=== PATIENT | male | born 1955 | race African-American/Black ===

== ENCOUNTER 2017-08-11 22:42 | Inpatient (IN) | payer SELFPAY ==
--- NOTE | 2017-08-11 23:11 | PDOC ---
History of Present Illness - General Stated Complaint: SLURRED SPEECH Time Seen by Provider: 08/11/17 23:04 History Source: Family - History of Present Illness Initial Comments: 08/11/17 23:10 Patient is a 61 y.o. male who presents with slurred speech and R sided facial droop, RUE weakness of 6 days. Patient brought to ED by brother who noticed the slurred speech when visiting him tonight around 10 p.m. Past History - Past Medical History Allergies/Adverse Reactions: Allergies Allergy/AdvReac Type Severity Reaction Status Date / Time No Known Allergies Allergy Verified 08/11/17 23:20 Home Medications: Ambulatory Orders Unobtainable [Unobtainable] 08/11/17 - Suicide/Smoking/Psychosocial Hx Smoking History: Unknown if ever smoked Review of Systems - Review of Systems Constitutional: No: Chills, Fever HEENTM: No: Recent change in vision Respiratory: No: Shortness of Breath Cardiac (ROS): No: Chest Pain Neurological: Yes: See HPI. No: Numbness, Tingling, Weakness, Unsteady Gait, Ataxia, Dizziness *Physical Exam - Vital Signs Last Vital Signs Temp Pulse Resp BP Pulse Ox 98.7 F 85 20 184/120 100 08/11/17 23:02 08/11/17 23:02 08/11/17 23:02 08/11/17 23:02 08/11/17 23:02 - Physical Exam Comments: 08/12/17 00:22 GENERAL: Awake, alert, and fully oriented, in no acute distress HEAD: No signs of trauma EYES: PERRLA, EOMI, sclera anicteric, conjunctiva clear ENT: Auricles normal inspection, hearing grossly normal, nares patent, oropharynx clear without exudates. Moist mucosa NECK: Normal ROM, supple, no lymphadenopathy, JVD, or masses LUNGS: Breath sounds equal, clear to auscultation bilaterally. No wheezes, and no crackles HEART: Regular rate and rhythm, normal S1 and S2, no murmurs, rubs or gallops ABDOMEN: Soft, nontender, normoactive bowel sounds. No guarding, no rebound. No masses EXTREMITIES: Normal range of motion, no edema. No clubbing or cyanosis. No cords , erythema, or tenderness BACK: No midline spinal tenderness in cervical/ thoracic/lumbar region NEUROLOGICAL: slurred speech, cranial nerves intact, R sided protonator drift, normal sensation to light touch in all 4 extremities, normal cerebellar exam, normal gait, normal reflexes and tone SKIN: Warm, Dry, normal turgor, no rashes or lesions noted. ED Treatment Course - LABORATORY CBC & Chemistry Diagram: 08/11/17 23:15 08/11/17 23:15 Medical Decision Making - Medical Decision Making 08/11/17 23:21 Patient is a 61 y.o. male with a PMH of HTN who presents with slurred speech and R sided facial droop of unknown onset. At presentation patient hypertensive (SBP 180's). Stroke protocol initiated. Patient not candidate for tPA at this time given > 4.5 hours onset of symptoms. 08/11/17 23:45 CT head negative for acute ischemic process or hemmorhagic stroke. Case d/w neurology and patient's PCP, Dr. Ly. Patient to be admitted to inpatient medicine service for MRI and MRA. Patient resting comfortably, SBP 150's. Cholesterol 264 --> Lipitor. Patient given ASA. Will continue to monitor while in ED. *DC/Admit/Observation/Transfer Diagnosis at time of Disposition: Cerebrovascular accident (CVA) - Referrals - Patient Instructions - Post Discharge Activity
--- NOTE | 2017-08-11 23:12 | PDOC ---
NIH Stroke Scale - Last Known Well Date/Time & Onset Date Last Known Well: 08/05/17 Time Last Known Well: 23:00 - Initial Evaluation Level of consciousness: Alert Ask patient the month and their age: Answers both correctly Ask patient to open & close eyes; make fist and let go: Obeys both correctly Best gaze (horizontal eye movement): Normal Visual field testing: No visual field loss Facial paresis (Show teeth/raise eyebrows/close eyes tight): Minor paralysis ( flattened nasolabial fold, asymmetry on smiling) (R sided facial droop; tongue deviation to R) Motor Function: Left Arm: Normal Motor Function: Right Arm: Normal (extends arm 90 (or 45) degrees for 10 seconds without drift Motor Function: Left Leg: Normal (extends leg 30 degrees for 5 seconds without drift) Motor Function: Right Leg: Normal (extends leg 30 degrees for 5 seconds without drift) Limb Ataxia: No ataxia Sensory(Use pinprick test arms,legs,trunk,face/side to side): Normal Best language (Describe picture, name items, read sentences): No Aphasia Dysarthria (read several words): Mild to moderate slurring of words Extinction and Inattention: No abnormality - Total Score NIH Stroke Scale Score: 2
[2017-08-11 23:28] LABS: BASO % 0.8 % (0-2.0); EOS % 4.2 % (0-4.5); HEMATOCRIT 44.7 % (35.4-49); HEMOGLOBIN 15.1 GM/dL (11.7-16.9); LYMPH % 36.3 % (8-40); MCH 33.1 pg (25.7-33.7); MCHC 33.8 g/dl (32.0-35.9); MEAN CELL VOLUME 97.9 fl (80-96); MEAN PLT VOLUME 7.7 fl (7.5-11.1); MONO % 9.3 % (3.8-10.2); NEUT % 49.4 % (42.8-82.8); PLATELET COUNT 218 K/MM3 (134-434); RBC 4.56 M/mm3 (4.00-5.60); WHITE BLOOD COUNT 7.1 K/mm3 (4.0-10.0)
--- NOTE | 2017-08-11 23:28 | PDOC ---
Attending Attestation - Resident Resident Name: Mei García - ED Attending Attestation I have performed the following: I have examined & evaluated the patient, The case was reviewed & discussed with the resident, I agree w/resident's findings & plan, Exceptions are as noted - HPI HPI: 08/12/17 01:50 The patient is a 61 year old male, accompanied by brother, with no significant past medical history who presents to the ED with slurred speech for 2 days. As per brother, the patient notes he feels generally weak for the past 2 days with slowed speech. Brother states the patient was talking slowly, forgetting words and slurring over his speech earlier today. Patient also notes his tongue feels heavy. Denies headache. HPI is limited secondary to patients clinical condition. - Physicial Exam PE: 08/12/17 01:50 GENERAL: Awake, alert, and fully oriented HEAD: No signs of trauma EYES: PERRLA, EOMI, sclera anicteric, conjunctiva clear ENT: Auricles normal inspection, hearing grossly normal, nares patent, oropharynx clear without exudates. Moist mucosa NECK: Normal ROM, supple, no lymphadenopathy, JVD, or masses LUNGS: Breath sounds equal, clear to auscultation bilaterally. No wheezes, and no crackles HEART: Regular rate and rhythm, normal S1 and S2, no murmurs, rubs or gallops ABDOMEN: Soft, nontender, normoactive bowel sounds. No guarding, no rebound. No masses EXTREMITIES: Normal range of motion, no edema. No clubbing or cyanosis. No cords , erythema, or tenderness BACK: No midline spinal tenderness in cervical/thoracic/lumbar region NEUROLOGICAL: + Right sided facial droop, right pronator drift, slurred speech, at time answers question inappropriately. Cerebeller exam wnl. Gait exam deferred. Normal sensation to light touch x4. SKIN: Warm, Dry, normal turgor, no rashes or lesions noted. - Medical Decision Making 08/11/17 23:26 61-year-old male with no significant past Department with 2 days of slurred speech, right facial weakness, and right upper extremity weakness. Vitals remarkable for hypertension in the emergency department. Exam with slurred speech, right-sided facial droop, and right-sided pronator drift. Patient likely had a CVA 2 days ago, he is out of the window for TPA treatment. No fevers, chills, rash to suggest meningitis. We'll obtain CT head and stroke labs , if CT head is negative for hemorrhagic stroke, we'll obtain MRI, consult neurology and admit patient. 08/12/17 00:[address] Ly Case discussed in detail with admitting physician including history, physical exam and ancillary studies. Admitting physician has assumed care for the patient, will follow all pending diagnostics and will complete the evaluation and treatment.
[2017-08-11 23:31] VITALS: BMI 28.8
[2017-08-11] MEDS: SODIUM CHLORIDE 1,000 ML IV SCH (23:31)
[2017-08-11 23:51] LABS: ALBUMIN 4.4 g/dl (3.4-5.0); ANION GAP 9 (8-16); BLOOD UREA NITROGEN 14 mg/dL (7-18); CALCIUM 9.3 mg/dL (8.5-10.1); CHLORIDE 105 mmol/L (98-107); CHOLESTEROL 267 mg/dL (50-200); CO2 28 mmol/L (21-32); CREATININE 1.2 mg/dL (0.7-1.3); GLUCOSE,RANDOM 98 mg/dL (74-106); INR 0.94 (0.82-1.09); POTASSIUM 3.9 mmol/L (3.5-5.1); PROTHROMBIN TIME (PATIENT) 10.6 SEC (9.98-11.88); SGOT/AST 22 U/L (15-37); SGPT/ALT 45 U/L (12-78); SODIUM 142 mmol/L (136-145); TRIGLYCERIDES 154 mg/dL (35-160)
[2017-08-11 23:55] LABS: ALK PHOS 70 U/L (45-117); BILIRUBIN,TOTAL 0.3 mg/dL (0.2-1.0)
[2017-08-12] MEDS ORDERED: ATORVASTATIN CA 80 MG TABLET (FP) PO ONE (00:03)
[2017-08-12] MEDS ORDERED: ASPIRIN 325 MG TABLET PO ONE (00:03)
[2017-08-12] MEDS ORDERED: ATORVASTATIN CA 80 MG TABLET (FP) ONE (00:17)
[2017-08-12] MEDS ORDERED: ASPIRIN 325 MG ENTERIC COATED TABLET (FP) ONE (00:17)
[2017-08-12 00:25] LABS: HDL CHOLESTEROL 68 mg/dL (40-60); LDL CHOLESTEROL (ONLY SJRH) 164 mg/dL (5-100)
[2017-08-12 07:19] LABS: URINE APPEARANCE CLEAR; URINE BILIRUBIN NEGATIVE (NEGATIVE); URINE BLOOD 2+ (NEGATIVE); URINE COLOR STRAW; URINE GLUCOSE (UA) NEGATIVE (NEGATIVE); URINE KETONE NEGATIVE (NEGATIVE); URINE NITRITE NEGATIVE (NEGATIVE); URINE PROTEIN NEGATIVE (NEGATIVE); URINE UROBILINOGEN NEGATIVE mg/dL (0.2-1.0)
[2017-08-12 07:39] LABS: URINE LEUK ESTERASE 1+ (NEGATIVE)
[2017-08-12 07:40] LABS: URINE MUCUS RARE
--- NOTE | 2017-08-12 12:24 | EKG ---
Test Reason : Blood Pressure : / mmHG Vent. Rate : 061 BPM Atrial Rate : 061 BPM P-R Int : 176 ms QRS Dur : 088 ms QT Int : 406 ms P-R-T Axes : 027 021 038 degrees QTc Int : 408 ms NORMAL SINUS RHYTHM MINIMAL VOLTAGE CRITERIA FOR LVH, MAY BE NORMAL VARIANT POOR R WAVE PROGRESSION ABNORMAL ECG NO PREVIOUS ECGS AVAILABLE NOTE ERROR IN LEAD V4, RECOMMEND REPEAT Confirmed by KAYLEE BOONE, STEFF ([id number]) on 08/12/2017 12:24:38 PM Referred By: Confirmed By:STEFF PAGE MD
--- NOTE | 2017-08-12 14:47 | HP ---
DATE OF ADMISSION: 08/12/2017 A 61-year-old male, known to have hypertension, hyperlipidemia, who was brought here by family yesterday evening with complaints of disorientation and minimal weakness on the right side. 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 No alcohol abuse. No drug abuse. He takes Percocet for his back pain. PHYSICAL EXAMINATION TODAY: Vital Signs: BP 130/95, pulse 72, respiration 20, temperature 98. General: Patient is awake and alert and oriented. HEENT: Unremarkable. Neck: Supple, no JVD. Lungs: Clear. Heart: S1, S2 normal. No S3, S4. Abdomen: Soft. Legs: No edema. Neurological: Minimal weakness, right upper extremity. Right plantar is not reacting, left plantar is upgoing. LABORATORY REPORTS: WBC 7, hemoglobin 15, platelets 218. Chemistry: Sodium 142, potassium 3.9, chloride 105, CO2 28, BUN 14, creatinine 1.2, cholesterol 267, and LDL 164, HDL 68. Troponin is negative. EKG to be evaluated. MRI of the brain showed left periventricular infarct. IMPRESSION: Cerebrovascular accident with left hemiparesis, hypertension, hyperlipidemia. PLAN: Admit to stroke floor. Neurology consult, Dr. Ridley. Other medications ordered. NAHUN VALLEJO M.D. [id number]
--- NOTE | 2017-08-12 17:08 | CONSULT ---
Consult - text type - Consultation Consultation Note: NEUROLOGY CONSULTATION is greatly appreciated: Events reviewed and discussed with ED staff and Dr. Hugo Ly: This 61 yo RH (?) man with h/o HTN and chol, on atorvastatin has had 6 days of R sided weakness and "slurred speech." CT of head (reviewed): shows deep lucencies in the Left MCA teritory. MRI (reviewed): shows multiple, scattered, infarcts in the Left frontotemporal region. MR Angio (reviewed) shows a distal left ICA occlusion with no flow in the Left middle and anterior Cerebral arteries. EXAM: No bruits. Cor Reg. NEURO: Awake, alert. Fluent (receptive) aphasia with word substitutions. Follows rare commands. Mild Right facial droop. Full chappell to threat. Full EOM's. Gag normal Mild right drift. Normal grasps and leg strength. Normal reflexes. Toes downgoing. IMP: Moderate left cerebral dysfunction with receptive aphasia. Etiology is distal Left ICA occlusion. MRI pattern of small, scattered, deep infarcts, supports a more gradual process with the time to establish collateral circulation. With question of onset as long as 6 days ago, Patient is not a candidate for endovascular intervention. SUGGEST: Admit to a monitored bed. Cardiology evaluation, Echo, etc. Speech therapy eval. Maintain normotensive. Antiplatelet Rx unless a source of cardiogenic embolism is suspected. Thank you very much, Italo Ridley MD
[2017-08-12] MEDS: HEPARIN NA (PORCINE) 5,000 UNITS/ML 1ML VIAL SQ SCH (21:44)
[2017-08-12] MEDS: ATORVASTATIN CA 80 MG TABLET (FP) PO SCH (21:44)
[2017-08-12] MEDS: SODIUM CHLORIDE 1,000 ML IV SCH (23:32)
[2017-08-12] MEDS: amLODIPine BESYLATE 5 MG TABLET (FP) PO SCH (23:32)
[2017-08-13] MEDS: HEPARIN NA (PORCINE) 5,000 UNITS/ML 1ML VIAL SQ SCH ×2 (09:33→21:30)
[2017-08-13] MEDS: amLODIPine BESYLATE 5 MG TABLET (FP) PO SCH (09:33)
--- NOTE | 2017-08-13 09:45 | PN ---
Progress Note, Physician Chief Complaint: Feels better History of Present Illness: admitted with Lt CVA with Rt hemiparesis and dysphasia - Current Medication List Current Medications: Active Medications Amlodipine Besylate (Norvasc -) 5 mg PO DAILY [facility] Last Admin: 08/12/17 23:32 Dose: 5 mg Atorvastatin Calcium (Lipitor -) 80 mg PO HS [facility] Last Admin: 08/12/17 21:44 Dose: 80 mg Heparin Sodium (Porcine) (Heparin -) 5,000 unit SQ BID [facility] Last Admin: 08/12/17 21:44 Dose: 5,000 unit Sodium Chloride (Normal Saline -) 1,000 mls @ 42 mls/hr IV ASDIR [facility] Last Admin: 08/12/17 23:32 Dose: 42 mls/hr - Objective Vital Signs: Vital Signs Temperature 98.2 F 08/13/17 08:05 Pulse Rate 60 08/13/17 08:05 Respiratory Rate 14 08/13/17 08:05 Blood Pressure 148/94 08/13/17 08:05 O2 Sat by Pulse Oximetry (%) 99 08/12/17 21:00 Constitutional: Yes: Calm Eyes: Yes: WNL HENT: Yes: WNL Neck: Yes: WNL Cardiovascular: Yes: WNL Respiratory: Yes: WNL Gastrointestinal: Yes: WNL ...Rectal Exam: Yes: WNL Genitourinary: Yes: WNL Breast(s): Yes: WNL Extremities: Yes: WNL Edema: No Peripheral Pulses WNL: Yes Neurological: Yes: Alert, Babinski negative Psychiatric: Yes: WNL Labs: CBC, BMP 08/11/17 23:15 08/11/17 23:15 INR, PTT INR 0.94 (0.82-1.09) 08/11/17 23:15 - ....Imaging Chest X-ray: Pending Assessment/Plan Cardiology consult Swallowing evaluation PT evaluation
--- NOTE | 2017-08-13 11:54 | CONS ---
DATE OF CONSULTATION: 08/13/2017 REQUESTING PHYSICIAN: Kvng Ly MD CHIEF COMPLAINT: 1. Slurred speech. 2. Difficulty in formulating words. HISTORY: The patient is a 61-year-old gentleman who hails from [facility] who has a history of hypertension and hypercholesterolemia. According to Dr. Ly, he has poor follow up. He has difficulty formulating words but is able to answer in yes and no. On questioning, he has had these symptoms for 6 days prior to admission. There is no history of loss of consciousness or seizures. There is no history of palpitations, lightheadedness, or dizziness. No history of chest pain or discomfort. No history of dyspnea either at rest or with exertion. Denies having diabetes mellitus. No history of heart murmur or rheumatic fever. PAST MEDICAL HISTORY: As mentioned in the history of present illness. PAST SURGICAL HISTORY: Denies having any surgeries. SOCIAL HISTORY: He is employed, . Has a son and a daughter. Smokes less than a pack of cigarettes per week. An occasional drinker. No known history of drug use. FAMILY HISTORY: Both parents are and in their 70s. He does not know the cause of their demise. Has a brother and possibly a sister but was unable to communicate if they are healthy. ALLERGIES: None reported. CURRENT MEDICATIONS: 1. Heparin 5000 units subcutaneous b.i.d. 2. Amlodipine 5 mg p.o. daily. 3. Atorvastatin 80 mg p.o. daily. REVIEW OF SYSTEMS: Constitutional: No history of chills, fever, or night sweats reported. HEENT: No history of headaches, diplopia, blurred vision. No history of epistaxis, hoarseness, tinnitus, or deafness reported. Cardiovascular: No history of chest pain or discomfort. No history of palpitations. Respiratory: Denies having a cough, expectoration, or hemoptysis. Gastrointestinal: No history of nausea, vomiting, melena, or hematemesis. No history of abdominal pain or discomfort. Neurologic: See history of present illness. No history of myalgias or arthralgias. Endocrine: No history of polyuria or polydipsia. Denies having intolerance to cold or warm weather. Hematologic: No history of anemia, ecchymosis, or bleeding. PHYSICAL EXAMINATION: General: A 61-year-old gentleman who is in no acute distress. No pallor, cyanosis, clubbing, or jaundice. Vital Signs: Blood pressure 148/94 mmHg, pulse 60 beats per minute and regular. Patient is afebrile 98.2 Fahrenheit. Respirations are 14 per minute. Neck: Supple. No jugular venous distention. Carotids are 2+. Upstrokes are normal. No bruits are heard. No thyromegaly is present. Heart: PMI is in the 5th intercostal space. No heaves or thrills. S1, S2 are normal. No murmur, gallops, or rubs are heard. Lungs: Clear on auscultation. Chest: Normal AP diameter. Expansion is symmetrical. Abdomen: Soft, protuberant, and nontender. No hepatosplenomegaly or palpable masses are felt. Bowel sounds are hard. No bruits are present. Extremities: No calf tenderness or dependent edema. Pulses are equal. Neurologic: There is weakness of the right hand. There is dysarthria and slurring of speech. He is able to ambulate without difficulty. LABORATORY DATA: X-ray chest: There is weak inspiratory effort with resultant large heart, unfolding aorta, tracheal deviation to the right, and clear lung chappell. The angles are soft, and the soft tissues are intact. There is slight elevation of the left hemidiaphragm. Clinical correlation is recommended. CT scan of the head: Minimal periventricular white matter lucency left more than right. Please refer to MRI of the brain dated August 12, 2017. Impression: 1. 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 Flow is present in the left A2 segment through an anterior communicating artery. Questionable moderate narrowing of the mid right M1 segment. 2. The MRI had revealed there is mild volume loss and ventricular dilatation. There are multiple T2 hyperintense foci in the left periventricular white matter at the level of the aung radiating with the largest foci measuring approximately 1.4 cm and multiple foci in the left posterior temporal and front as well as in the left occipital and parietal white matter with restricted diffusion. 3. Echocardiogram was not available. CBC: August 11, 2017 WBC count 7100, hemoglobin 15.1 g, platelet count 218,000. Chemistry: Sodium 142, potassium 3.9, chloride 105, CO2 is 28, BUN 14, creatinine 1.2 mg/dL, random glucose 98 mg/dL, cholesterol 267, triglycerides 154, LDL cholesterol 164, HDL 68 mg/dL. INR 0.94. Urinalysis revealed 2+ blood, 1+ leukocyte esterase. There were 8 WBCs and 3 RBCs, rare urine mucus. IMPRESSION: 1. Cerebrovascular disease with dysarthria, expressive aphasia, and weakness of the right hand. Etiology: A. Cryptogenic stroke needs to be excluded especially in view of MRI findings. B. Related to atherosclerotic acute internal carotid artery occlusion 2. Hypertension, hypertensive cardiovascular disease. 3. Hypercholesterolemia. 4. Tobacco abuse. 5. Microscopic hematuria with possible urinary tract infection. 6. Poor compliance. RECOMMENDATIONS: 1. ECG. 2. Echocardiogram. 3. Holter monitor. 4. Anti-lipid therapy. 5. Risk modification. 6. Further suggestions will depend on the results of the above-mentioned test. Thank you for your referral. Yours Sincerely, AYLEEN PEREZ M.D. [id number]
--- NOTE | 2017-08-13 12:13 | CONSULT ---
Admitting History and Physical - Primary Care Physician PCP: Kvng Ly - Admission History of Present Illness: Patient is a 61 y.o. male who presented with slurred speech and R sided facial droop, RUE weakness of 6 days. Per NEUROLOGY 08/12/17: Awake, alert. Fluent (receptive) aphasia with word substitutions. Follows rare commands. Mild Right facial droop. Full chappell to threat. Full EOM's. Gag normal Mild right drift. Normal grasps and leg strength. Normal reflexes. Toes downgoing. IMP: Moderate left cerebral dysfunction with receptive aphasia. Etiology is distal Left ICA occlusion. MRI pattern of small, scattered, deep infarcts, supports a more gradual process with the time to establish collateral circulation. With question of onset as long as 6 days ago, Patient is not a candidate for endovascular intervention. History Source: Patient, Medical Record Limitations to Obtaining History: Clinical Condition (Aphasia) - Smoking History Smoking history: Unknown if ever smoked History - Admission Reason For Visit: SLURRED SPEECH - Diagnostics CT Scan: Report Reviewed ( deep lucencies in the Left MCA teritory.) MRI: Report Reviewed ( multiple, scattered, infarcts in the Left frontotemporal region.) Other: Report Reviewed (distal left ICA occlusion with no flow in the Left middle and anterior Cerebral arteries.) - General Mental Status: Alert and Oriented, Awake and Alert Attention: Intact Ability to Follow Directions: Poor (Follows single 1 stage commands 60% of the time. Unable to follow 2 stage simple commands) Head/Neck Control: Good - Hearing Hearing: Functional Speech Evaluation - Communication Primary Language: UNKNOWN Communication: Yes: Simple Responses, Aphasia Oral Expression Ability: Yes: Moderate Impairment - Speech Production Able to Make Needs Known: Yes: Mildly Impaired Intelligibility: Yes: WNL - Speech Characteristics Voice Loudness: Mildly Soft/Quiet Voice Pitch: Yes: Normal Voice Phonatory-based Quality: Yes: Normal Nasal Resonance: Normal Articulation: Yes: Precise - Language/Auditory Comprehension Observation: Able to respond to yes/no queries: Yes (simple), Benefits from Slow Speech: Yes, Benefits from Repetiton: Yes - Language/Verbal Expression Aphasia: Yes: Anomia, Paraphrasic Errors Able to Respond to Simple Queries: Yes: Mildly Impaired, Moderately Impaired Able to Communicate Wants and Needs: Yes: Mildly Impaired Functional Communication Status: Yes: Mildly Impaired, Moderately Impaired Aware of Errors: No Attempts to Correct Errors: No - Swallow Evaluation/Bedside Assessment Current Nutritional Intake: Regular, Thin Liquids Oral Secretions: Yes: WFL Dentition: Yes: Adequate Facial Symmetry at Rest: Facial Droop Right Facial Symmetry on Retraction: Symmetrical Facial Movement: Controlled Against Resistance Opening: Normal Against Resistance Closing: Normal Pucker Lips: Normal Smile: Normal, Droops Right (slight) Lingual Movement: Symmetric Lingual Speed of Movement: Normal Lingual Movement Strgth Against Opposition: Normal Lingual Movement Characteristics: Normal Velopharyngeal Movement: Normal Laryngeal Elevation: WFL Laryngeal Movement: Able to Palpate Rate of Intake: WFL Bolus Size: WFL Labial Seal: WFL Chewing: WFL Oral Prep Time: WFL A-P Transit: WFL Pocketing: None Timing of Swallow: WFL Coughing/Throat Clear: No Change in Voice: No Recommendations - Speech Evaluation, Impression/Plan Impression: Pt presents with comprehension/formulation deficits c/w Aphasia.No dysarthria. Oriented. Pt is able to follows single 1 stage commands 60% of the time. Unable to follow 2 stage simple commands. He can produce social speech and simple sentences. There is anomia, perseveration and paraphasic errors during confrontation naming and propositional speech tasks. Error awareness is poor, with denial of communication deficits and no attempt to correct errors. Language function is improving, as compared to yesterday's Neurology consult. Recommended Therapies: Language - Disposition Discharge to: To be Determined - Dysphagia Impressions/Plan Swallowing Skills: WF Dysphagia Impressions: No Impairment *Silent aspiration: cannot be R/O at bedside Recommendations: Other (Continued Aphasia therapy upon d/c.) - Recommendations Diet Consistency: Regular Medication Administration: Whole with water Liquids: Thin Liquids
--- NOTE | 2017-08-13 12:35 | EKG ---
Test Reason : Blood Pressure : / mmHG Vent. Rate : 066 BPM Atrial Rate : 066 BPM P-R Int : 184 ms QRS Dur : 088 ms QT Int : 406 ms P-R-T Axes : 045 027 052 degrees QTc Int : 425 ms NORMAL SINUS RHYTHM WITH SINUS ARRHYTHMIA NORMAL ECG WHEN COMPARED WITH ECG OF 11-AUG-2017 23:17, NO SIGNIFICANT CHANGE WAS FOUND Confirmed by DAWIT BELTRE MD ([id number]) on 08/13/2017 12:35:07 PM Referred By: Confirmed By:DAWIT BELTRE MD
[2017-08-13] MEDS: ATORVASTATIN CA 80 MG TABLET (FP) PO SCH (21:30)
--- NOTE | 2017-08-14 09:28 | PN ---
Progress Note, Physician Chief Complaint: Feels better History of Present Illness: Dr Muhammad cardiology consult and Trey swallowing evaluation appreciated - Current Medication List Current Medications: Active Medications Amlodipine Besylate (Norvasc -) 5 mg PO DAILY [facility] Last Admin: 08/13/17 09:33 Dose: 5 mg Atorvastatin Calcium (Lipitor -) 80 mg PO HS [facility] Last Admin: 08/13/17 21:30 Dose: 80 mg Heparin Sodium (Porcine) (Heparin -) 5,000 unit SQ BID [facility] Last Admin: 08/13/17 21:30 Dose: 5,000 unit - Objective Vital Signs: Vital Signs Temperature 98.3 F 08/14/17 06:00 Pulse Rate 64 08/14/17 06:00 Respiratory Rate 20 08/14/17 06:00 Blood Pressure 133/78 08/14/17 06:00 O2 Sat by Pulse Oximetry (%) 98 08/13/17 21:00 Constitutional: Yes: No Distress Eyes: Yes: WNL HENT: Yes: WNL Neck: Yes: WNL Cardiovascular: Yes: WNL Respiratory: Yes: WNL Gastrointestinal: Yes: WNL ...Rectal Exam: Yes: Deferred Musculoskeletal: Yes: WNL Extremities: Yes: WNL Edema: No Peripheral Pulses WNL: Yes Neurological: Yes: WNL ...Motor Strength: WNL Labs: CBC, BMP 08/11/17 23:15 08/11/17 23:15 INR, PTT INR 0.94 (0.82-1.09) 08/11/17 23:15 - ....Imaging EKG: Report Reviewed Assessment/Plan Echocardiogram
[2017-08-14] MEDS: HEPARIN NA (PORCINE) 5,000 UNITS/ML 1ML VIAL SQ SCH ×2 (10:32→21:40)
[2017-08-14] MEDS: amLODIPine BESYLATE 5 MG TABLET (FP) PO SCH (10:32)
--- NOTE | 2017-08-14 10:58 | PN ---
Progress Note (short form) - Note Progress Note: Patient has improved, minimal expressive aphasia and right hand weakness. ambulating. patient was not taking his medications. No palpitations reported. work up in progress. BP is well controlled. Active Medications Generic Name Dose Route Start Last Admin Trade Name Gerry PRN Reason Stop Dose Admin Amlodipine Besylate 5 mg 08/12/17 23:15 08/14/17 10:32 Norvasc - PO 5 mg DAILY BOB Administration Atorvastatin Calcium 80 mg 08/12/17 22:00 08/13/17 21:30 Lipitor - PO 80 mg HS BOB Administration Heparin Sodium (Porcine) 5,000 unit 08/12/17 22:00 08/14/17 10:32 Heparin - SQ 5,000 unit BID BOB Administration 61 year old male in no acute distress, no pallor , cyanosis, clubbing or jaundice. Last Vital Signs Temp Pulse Resp BP Pulse Ox 98.3 F 64 20 133/78 98 08/14/17 06:00 08/14/17 06:00 08/14/17 06:00 08/14/17 06:00 08/13/17 21:00 NECK: Supple, no JVD, carotids are 2+ no bruits heard. HEART: PMI in the 5th ICS, no heaves or thrills, S1 & S2 are normal, no murmur or gallops heard. LUNGS: Clear on auscultation. ABDOMEN: Soft, nontender, no calf tenderness or dependent edema. CBC, BMP 08/11/17 23:15 08/11/17 23:15 IMPRESSION: 1. 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 2. Hypertension, poorly controlled. 3. Hypercholesterolemia. 4. Poor compliance. RECOMMENDATIONS: 1. Vascular opinion regarding carotid disease. 2. current therapy. 3. Add ASA 81 mg.
--- NOTE | 2017-08-14 11:21 | PN ---
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 Pt is now able to name 50% of objects with poor awareness of paraphasic errors and perseverative responses. He can now follow simple 2 stage commands 50% of time, with slow rate of presentation and repetition to facilitate accuracy. Receptive/expressive Aphasia will continue to improve spontaneously. Unfortunately, pt does not have insurance for Speech Therapy. I am referring pt to [facility] for Free Group Aphasia therapy,Every Sunday between 2-3. Contact Damoisésa/phone number is [phone]
[2017-08-14] MEDS: ASPIRIN COATED 81 MG TABLET.EC PO SCH (11:29)
--- NOTE | 2017-08-14 17:29 | HOL ---
Hook-up date: 2017-08-13 13:48:00 Duration: 24:00:00 Test Indications: Medications: 55227 QRS complexes 8 Ventricular ectopics which represent <1 % of total QRS comp. 4 Supraventricular ectopics which represent <1 % of total QRS comp. * Paced QRS complexs which represent % of total QRS comp. * % of Time Classified as Noise VENTRICULAR ECTOPY 8 Isolated 0 Bigeminal Cycles 0 Couplets 0 Runs 0 Beats in Runs * Beats LONGEST at * BPM at :: -- * Beats FASTEST at * BPM at :: -- SUPRAVENTRICULAR ECTOPY 3 Isolated 0 Couplets 0 Runs 0 Beats in Runs * Beats LONGEST at * BPM at :: -- * Beats FASTEST at * BPM at :: -- HEART RATES 46 MIN at 06:10:28 2017-08-14 65 AVG 106 MAX at 23:49:26 2017-08-13 LONGEST RR 1.528 secs at 15:24:33 2017-08-13 SCANNED BY [facility] [place] ON 08/14/17 Normal sinus rhythm Minimum HR 46 BPM and Maximal HR 106 BPM with an Average of 65 BPM. no prolonged pauses. Rare VPC Confirmed by Rodriguez Guzman ([id number]) on 08/14/2017 5:28:38 PM Referred By: SHEIK GALEAS DR Overread By: Rodriguez Guzman
[2017-08-14] MEDS: ATORVASTATIN CA 80 MG TABLET (FP) PO SCH (21:40)
[2017-08-15 06:18] VITALS: TEMP 98.3
--- NOTE | 2017-08-15 09:43 | DS ---
Physical Examination Vital Signs: Vital Signs Temperature 98.3 F 08/15/17 06:00 Pulse Rate 52 L 08/15/17 06:00 Respiratory Rate 20 08/15/17 06:00 Blood Pressure 138/75 08/15/17 06:00 O2 Sat by Pulse Oximetry (%) 99 08/14/17 21:00 Findings/Remarks: Lt CVA with Rt hemiparesis Constitutional: Yes: Well Nourished Eyes: Yes: WNL HENT: Yes: WNL Neck: Yes: WNL Cardiovascular: Yes: WNL Respiratory: Yes: WNL Gastrointestinal: Yes: WNL ...Rectal Exam: Yes: Deferred Renal/: Yes: WNL Musculoskeletal: Yes: WNL Extremities: Yes: WNL Edema: No Integumentary: Yes: WNL Neurological: Yes: Alert, Oriented Psychiatric: Yes: Alert Labs: CBC, BMP 08/11/17 23:15 08/11/17 23:15 Discharge Summary Reason For Visit: SLURRED SPEECH Current Active Problems Cerebrovascular accident (CVA) (Acute) - Instructions Referrals: Kvng Ly MD [Primary Care Provider] - - Home Medications Comprehensive Discharge Medication List: Ambulatory Orders Unobtainable [Unobtainable] 08/11/17
[2017-08-15] MEDS: HEPARIN NA (PORCINE) 5,000 UNITS/ML 1ML VIAL SQ SCH (10:43)
[2017-08-15] MEDS: amLODIPine BESYLATE 5 MG TABLET (FP) PO SCH (10:43)
[2017-08-15] MEDS: ASPIRIN COATED 81 MG TABLET.EC PO SCH (10:43)
[2017-08-15 10:52] VITALS: BP 133/78; PULSE 60
--- NOTE | 2017-08-15 10:54 | PN ---
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 I reviewed with pt plan to receive group Language therapy at [facility]. I educated him on his comprehension deficits, suggesting he ask people to speak slowly, use shorter sences, repeat themselves. He was instructed to ask for repetition to clarify and maximize comprehension. Prognosis is good for continued Aphasia recovery.
== END 2017-08-15 10:52 | disposition home or self-care (01) | DRG 45 ==
LOC: JER 22:42 → JERBED 08-12 00:19 → J4W 08-12 20:04
PROVIDERS: ADMIT Internal Medicine; ATTEND Internal Medicine
DX: I63.9 Cerebral infarction, unspecified (principal); G81.94 Hemiplegia, unspecified affecting left nondominant side; R29.702 NIHSS score 2; E78.5 Hyperlipidemia, unspecified; R47.02 Dysphasia; Z72.0 Tobacco use; R31.29 Other microscopic hematuria; I11.9 Hypertensive heart disease without heart failure; Z91.19 Patient's noncompliance with other medical treatment and regimen
CPT/HCPCS: 36415; 70450-TC; 70544-TC; 70547-TC; 70551-TC; 71045-TC; 80053; 81003; 81015; 82465; 82550; 82553; 82962; 83718; 83721; 84478; 84484; 85025; 85610; 85651; 86140; 93005; 93010; 93225; 93226; 93306-TC; 97116-GP; 97161-GP; 99284-25; J1644

== ENCOUNTER 2023-06-07 04:43 | Day surgery (SDC) | payer OTHER ==
[2023-05-28 15:21] VITALS: BMI 27.0
[2023-06-07 11:55] VITALS: TEMP 97.7
[2023-06-07 12:28] VITALS: RESP 17
[2023-06-07 12:32] VITALS: BP 139/83; PULSE 77
== END 2023-06-07 12:41 | disposition home or self-care (01) ==
LOC: JASU-ENDO 04:43
PROVIDERS: ATTEND Internal Medicine Gastroenterology
PROC: 0DBN8ZX Excision of Sigmoid Colon, Via Natural or Artificial Opening Endoscopic, Diagnostic (ICD-10-PCS; principal; 2023-06-07 11:30)
DX: Z12.11 Encounter for screening for malignant neoplasm of colon (principal); D12.7 Benign neoplasm of rectosigmoid junction; K57.30 Diverticulosis of large intestine without perforation or abscess without bleeding
CPT/HCPCS: 88305-TC